=== PATIENT | male | born 1980 | race Caucasian/White ===

== ENCOUNTER 2019-05-19 10:51 | Emergency (ER) | payer MEDICAID ==
[~2019-05-19] VITALS: Ht 162.6 cm; Wt 65.4 kg
[2019-05-19 11:04] VITALS: BP 115/84
== END 2019-05-19 12:02 | disposition home or self-care (01) ==
LOC: ED 11:53
DX: K04.7 Periapical abscess without sinus (principal)
CPT/HCPCS: 70100; 99283